=== PATIENT | female | born 1995 | race Hispanic/Latino ===

== ENCOUNTER 2025-02-03 16:03 | Emergency (ER) | payer OTHER, SELFPAY ==
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
[2025-02-03 16:11] VITALS: BP 132/78; PULSE 80; RESP 16; TEMP 36.4; O2SAT 98
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
[2025-02-03] MEDS: HYDROmorphone HCL INJ (*CRX) 2 MG/ML VIAL 0.5 MG IM (18:04)
[2025-02-03 18:48] VITALS: BP 117/80; PULSE 77; RESP 15; O2SAT 96
[2025-02-03 19:28] VITALS: BP 100/67; PULSE 65; RESP 15; O2SAT 97
[2025-02-03 20:37] VITALS: BP 103/70; PULSE 67; RESP 15; O2SAT 97
--- NOTE | 2025-02-03 20:41 | PC.NURSE ---
called [facility] ER at 1930 and gave report to BETTY Marie. all questions answered.
== END 2025-02-03 20:38 | disposition short-term general hospital (02) ==
PROVIDERS: Emergency Provider Student in an Organized Health Care Education/Training Program
DX: M25.551 Pain in right hip (principal); M54.2 Cervicalgia; R93.7 Abnormal findings on diagnostic imaging of other parts of musculoskeletal system; V89.2XXA Person injured in unspecified motor-vehicle accident, traffic, initial encounter
CPT/HCPCS: 72125; 73502; 96372; 99285; J1171